=== PATIENT | male | born 1995 ===

== ENCOUNTER 2020-01-03 11:30 | Emergency (ER) | payer SELFPAY ==
--- NOTE | 2020-01-03 12:12 | RAD ---
EXAM: Portable chest PROVIDED CLINICAL HISTORY: Chest pain COMPARISON: None FINDINGS: Cardiac and mediastinal silhouette is within normal limits. No focal consolidation, pleural fluid or pneumothorax evident. IMPRESSION: No evidence for an acute cardiopulmonary process.
--- NOTE | 2020-01-06 01:33 | EKG ---
Test Reason : Blood Pressure : / mmHG Vent. Rate : 066 BPM Atrial Rate : 066 BPM P-R Int : 128 ms QRS Dur : 102 ms QT Int : 378 ms P-R-T Axes : 021 086 050 degrees QTc Int : 396 ms Sinus rhythm with marked sinus arrhythmia Otherwise normal ECG Confirmed by TY LOPEZ ([id number]), photo editor DARIEN PAIGE ([id number]) on 01/06/2020 1:32:44 AM Referred By: Confirmed By:TY Hayes
== END 2020-01-03 12:39 | disposition home or self-care (01) ==
LOC: ERS 11:30
DX: R07.89 Other chest pain (principal); F17.210 Nicotine dependence, cigarettes, uncomplicated; Z79.899 Other long term (current) drug therapy
CPT/HCPCS: 71045; 93005